=== PATIENT | female | born 1995 | race Hispanic/Latino ===

== ENCOUNTER 2018-06-19 17:39 | Emergency (ER) | payer SELFPAY ==
[2018-06-19] MEDS ORDERED: Mag-Al 1200 mg/1200 mg/30 ML UDCUP ONE (18:13)
[2018-06-19] MEDS ORDERED: Lidocaine Viscous Sol 2% 15 ml UD Cup ONE (18:13)
--- NOTE | 2018-06-19 18:57 | ULT ---
RIGHT UPPER QUADRANT ULTRASOUND: 06/19/18 HISTORY: Right upper quadrant pain. Recently removed gallbladder. Multiple longitudinal and transverse images of the right upper quadrant of the abdomen is obtained us ing multihertz curvilinear transducer. Real time, color flow, and spectral waveform doppler analysis demonstrates the liver to be unremarkab le. No evidence of intrahepatic biliary dilatation is seen. No evidence of hepatic parenchymal mass i s seen. The visualized portions of the pancreas is unremarkable. The common bile duct is of normal size measu ring 1.6 mm. The gallbladder has been surgically removed. No evidence of ascites seen. The right kidney is unremarkable measuring 10.1 cm from pole to pole. IMPRESSION: Normal postcholecystectomy right upper quadrant ultrasound. Normal hepatopedal flow is seen in the po rtal system. POS: [facility]
[2018-06-19 19:35] LABS: #Basophils 0.1 thou/uL (0.0-0.2); #Eosinphils 0.2 thou/uL (0.0-0.7); #Lymphocytes 1.5 thou/uL (1.20-3.40); #Monocytes 0.3 thou/uL (0.11-0.59); #Neutrophils 3.5 thou/uL (1.40-6.50); %Basophils 1.2 % (0.0-1.0); %Eosinophils 2.9 % (0.0-10.0); %Lymphocytes 27.7 % (21.0-51.0); %Monocytes 5.2 % (0.0-10.0); %Neutrophils 62.9 % (42.0-75.0); Hemoglobin 12.7 g/dL (12.0-16.0); Mean Corpuscular HGB CONC 33.2 g/dL (32.0-36.0); Mean Corpuscular Volume 87.4 fL (78.0-98.0); Mean Platelet Volume 7.2 fL (7.4-10.4); Platelet Count 273 thou/uL (130-400); RBC Distribution Width 12.4 % (11.5-14.5); Red Blood Cell (RBC) Count 4.37 mill/uL (4.20-5.40); White Blood Cell (WBC) Count 5.5 thou/uL (4.8-10.8)
[2018-06-19 19:43] LABS: BHCG - Serum Negative (NEGATIVE); Pregs Control Background? CLEAR/WHITE (CLR/WHITE); Pregs Control Bar Appear? YES (CONTROL BAR)
[2018-06-19 19:58] LABS: ALT (SGPT) 25 U/L (8-55); AST (SGOT) 16 U/L (5-34); Albumin 4.3 g/dL (3.5-5.0); Alkaline Phosphatase 67 U/L (40-150); Anion Gap 12 mmol/L (10-20); BUN (Urea Nitrogen) 12 mg/dL (7.0-18.7); Bilirubin, Total 0.5 mg/dL (0.2-1.2); Calc. Creatinine Clearance 0 mL/min (70-130); Calcium 9.3 mg/dL (7.8-10.44); Carbon Dioxide 24 mmol/L (22-29); Chloride 105 mmol/L (98-107); Estimated GFR-MDRD Greater than 90; Globulin 2.8 g/dL (2.4-3.5); Glucose 112 mg/dL (70-105); Lipase 41 U/L (8-78); Potassium 3.7 mmol/L (3.5-5.1); Protein, Total 7.1 g/dL (6.0-8.3); Sodium 137 mmol/L (136-145)
[2018-06-19 20:08] LABS: Bilirubin Negative (Negative); Blood, Urine Negative (Negative); Clarity CLEAR (Clear); Glucose, Urine (Dipstick) Negative (Negative); Leukocyte Negative (Negative); Nitrite Negative (Negative); Protein, Urine (Dipstick) Negative (Neg-Trace); Specific Gravity, Urine 1.006 (1.002-1.036); Urobilinogen 0.2 mg/dL (0.2-1.0); pH, Urine 6.5 (5.0-9.0)
[2018-06-19] MEDS ORDERED: Ondansetron PF 4 MG/2 ML Vial ONE (20:11)
[2018-06-19] MEDS ORDERED: Morphine 4 MG/ML VIAL ONE (20:11)
[2018-06-19] MEDS ORDERED: Sucralfate 1 GM/10 ML UDCUP ONE (21:20)
--- NOTE | 2018-06-19 21:51 | RAD ---
AP VIEW CHEST WELL SUPINE AND UPRIGHT VIEWS OF THE ABDOMEN: 06/19/18 HISTORY: Pain. AP view chest and two views abdomen obtained. The lungs are well aerated. No evidence of active intra thoracic disease seen. No evidence of effusions, pneumonia or pneumothorax seen. Two views abdomen demonstrate the abdominal gas pattern to be nonspecific. No evidence of obstruction or ileus seen. No dilated loops of bowel seen. IMPRESSION: Unremarkable AP view chest and two views abdomen. POS: [facility]
== END 2018-06-19 22:24 | disposition home or self-care (01) ==
LOC: ERS 17:39
DX: R10.13 Epigastric pain (principal); B96.81 Helicobacter pylori [H. pylori] as the cause of diseases classified elsewhere
CPT/HCPCS: 36415; 74022; 76705; 80053; 81003; 83690; 84703; 85025; 96374; 96375; J2270; J2405